=== PATIENT | female | born 1995 | race Two or more races ===

== ENCOUNTER 2025-08-08 12:56 | Outpatient (CLI) | payer OTHER | END 2025-08-08 12:57 | disposition home or self-care (01) | LOC: PRENATAL 12:56 | PROVIDERS: ATTEND Obstetrics & Gynecology Maternal & Fetal Medicine | DX: O26.843 Uterine size-date discrepancy, third trimester (principal); O36.8130 Decreased fetal movements, third trimester, not applicable or unspecified; Z3A.34 34 weeks gestation of pregnancy ==